=== PATIENT | female | born 1970 | race Caucasian/White ===

== ENCOUNTER 2019-08-23 10:46 | Emergency (ER) | payer BC, SELFPAY ==
[2019-08-23 10:56] VITALS: BP 148/89; PULSE 89; RESP 20; TEMP 36.3; O2SAT 99
--- NOTE | 2019-08-23 11:18 | ED.URI ---
HPI - URI/Sore Throat General Chief Complaint: Upper Respiratory Infection Stated Complaint: NAUSEA/VOMITING/SORE THROAT Time Seen by Provider: 08/23/19 11:32 Source: patient and RN notes reviewed Mode of arrival: ambulatory Limitations: no limitations History of Present Illness HPI Narrative: 49-year-old female presents with concern for 5-day history of intermittent nausea with occasional vomiting, neck tenderness, jaw tenderness, body aches, general malaise, fatigue. Reports she vomits approximately 1-2 times a day. Reports normal amount of urine output. She denies taking any medications for symptoms. Reports her daughter was exposed to mono, and is currently being tested for mono. MD elicited complaint: sore throat and other (Nausea vomiting) Related Data Home Medications Medication Instructions Recorded Confirmed Adhd Med 08/23/19 bupropion HCl [Wellbutrin XL] 150 mg PO QAM 08/23/19 08/23/19 bupropion HCl [Wellbutrin XL] 300 mg PO QAM 08/23/19 08/23/19 sertraline [Zoloft] 25 mg PO DAILY 08/23/19 08/23/19 Allergies Allergy/AdvReac Type Severity Reaction Status Date / Time No Known Allergies Allergy Verified 08/23/19 11:04 Review of Systems Review of Systems: Narrative: CONSTITUTIONAL: Reports malaise, fatigue. Denies chills, sweats, or fever. EYES: Denies visual changes, redness, or discharge. ENT: Reports rhinorrhea, congestion, sore throat. Denies sinus pain, otalgia. CARDIOVASCULAR: Denies chest pain, palpitations, or edema. RESPIRATORY: Denies cough or dyspnea. GASTROINTESTINAL: Denies abdominal pain, diarrhea. Reports nausea and vomiting SKIN: Denies rash or itching. MUSCULOSKELETAL: Reports myalgia. NEUROLOGIC: Denies headache. All systems reviewed & are unremarkable except as noted in HPI and below PMFSH Comments At time of signature, agree with nursing past medical, surgical, social and family history. There is no relevant family history pertinent to the presenting complaint Exam Narrative: Exam Narrative: GENERAL: Well-appearing, well-nourished, and in no acute distress. HEAD: Normocephalic, atraumatic. EYES: PERRLA, conjunctivae clear, and EOMI. ENT: Nares clear, turbinates erythematous, clear discharge. Mucous membranes moist. TM pearly cason with dull light reflex bilaterally; no tragal tenderness. Oropharynx erythematous without lesions. Tonsils not enlarged and without exudate, no drooling, no hoarseness, no trismus. NECK: Supple. No lymphadenopathy CHEST: Clear to auscultation, breath sounds equal. No wheezing, rhonchi, rales, or stridor. No respiratory distress, speaks in full sentences. Abdomen: Soft, nontender, obese, no palpable masses, bowel sounds normal HEART: Regular rate and rhythm. No murmur heard. Normal peripheral pulses. SKIN: Warm, dry, no rash. NEURO: Alert and oriented x3. PSYCH: Normal mood and affect Course Course Emergency Course: Patient is aware of diagnosis, understands and agrees to treatment plan. Anticipatory guidance given. Patient agrees to follow-up as directed and is aware of reasons to seek care at the emergency department. Portions of this record may have been created with voice recognition software Vital Signs Vital signs: Vital Signs Temperature 97.3 F L 08/23/19 10:56 Pulse Rate 89 08/23/19 10:56 Respiratory Rate 08/23/19 10:56 Blood Pressure 148/89 H 08/23/19 10:56 Pulse Oximetry 99 08/23/19 10:56 Temperature 97.3 F L 08/23/19 10:56 Pulse Rate 89 08/23/19 10:56 Respiratory Rate 08/23/19 10:56 Blood Pressure 148/89 H 08/23/19 10:56 Pulse Oximetry 99 08/23/19 10:56 Reviewed. MDM - URI/Sore Throat MDM Narrative Medical decision making narrative: Differential diagnosis considered: Mononucleosis, bacterial meningitis, viral meningitis, strep pharyngitis, allergic rhinitis, upper respiratory tract infection, sinusitis, rhinosinusitis, nasopharyngitis. viral pharyngitis, otitis media, otitis externa, pneumonia, bronchiti
== END 2019-08-23 11:49 | disposition home or self-care (01) ==
PROVIDERS: Emergency Provider Nurse Practitioner
DX: B34.9 Viral infection, unspecified (principal); F41.9 Anxiety disorder, unspecified; F32.9 Major depressive disorder, single episode, unspecified
CPT/HCPCS: 87081; 87880; 99203; G0463